=== PATIENT | female | born 1990 | race Caucasian/White ===

== ENCOUNTER 2018-07-22 15:27 | Emergency (ER) | payer MEDICAID ==
[~2018-07-22] VITALS: Ht 167.6 cm; Wt 80.0 kg
[2018-07-22 15:34] VITALS: BP 121/76
[2018-07-22] MEDS ORDERED: PRED20TA PO (16:08)
== END 2018-07-22 16:26 | disposition home or self-care (01) ==
LOC: ER 15:28
DX: L29.9 Pruritus, unspecified (principal); Z79.899 Other long term (current) drug therapy
CPT/HCPCS: 99283